=== PATIENT | male | born 1950 | race Caucasian/White ===

== ENCOUNTER 2022-07-08 08:12 | Day surgery (SDC) | payer OTHER, SELFPAY ==
[2022-07-08] VITALS (27 sets, daily range): BP systolic 90–167; BP diastolic 50–88; PULSE 48–93; RESP 12–20; TEMP 35.6–36.8; O2SAT 92–98; BMI 28.3
[2022-07-08] MEDS: OXYCODONE (CR) 10 MG TAB.ER.12H PO (08:32)
[2022-07-08] MEDS: ACETAMINOPHEN 500 MG TABLET 1000 MG PO ×3 (08:32→23:49)
[2022-07-08] MEDS: CELECOXIB 200 MG CAPSULE PO ×2 (08:32→20:50)
[2022-07-08] MEDS: LACTATED RINGERS 1000 ML 1,000 ML 100 ML IV ×2 (09:00→10:58)
[2022-07-08] MEDS: fentaNYL 100 MCG/2 ML inj IVP (09:45)
[2022-07-08] MEDS: MIDAZOLAM HCL 1 MG/ML inj IVP (09:46)
[2022-07-08] MEDS: TRANEXAMIC ACID 100 MG/ML INJ 1000 MG IV (10:10)
[2022-07-08] MEDS: CEFAZOLIN 2 GM in 0.9 % SODIUM CHLORIDE Mini-bag 100 ML IVPB ×3 (10:10→23:50)
--- NOTE | 2022-07-08 10:14 | CRLHL7_ITS ---
For Patients: As a result of the Cures Act, medical imaging exams and procedure reports are released immediately into your electronic medical record. You may view this report before your referring provider. If you have questions, please contact your health care provider. Indication: post op TKA Technique: Two views left knee Findings/Impression: Hardware from a left total knee arthroplasty is in satisfactory position. Bone alignment is normal. No sign of acute fracture. Postop changes are within normal limits. Dictated by Ruy Simpson MD @ 07/08/2022 2:01:54 PM (Electronically Signed)
--- NOTE | 2022-07-08 10:40 | P.NB_ITS ---
Nerve Block Nerve Block Date Seen: 07/08/22 Type of block requested by surgeon for post-operative analgesia: adductor canal Side: left Time out performed: Yes Verification of patient name: Yes Verification of date of : Yes Site marking: site marked Name of person performing procedure: Flakito Continuous monitoring Was continuous monitoring of O2 sat, B/P, monitoring specialist, recorded every 15 minutes?: Yes Procedure Checklist: sterile prep, needles and gloves Ultrasound guided. Images saved: Yes Medications given in 5ml increments after negative aspiration: Ropivicaine %: 0.5 mL: 20 Needle gauge: 20 Decadron (mg): 10 Precedex (mcg): 25 Patient tolerated procedure well: Yes Additional comments: Needle noted adjacent to nerve Block Charges Block Charge (with Pro Fee): Femoral Nerve Use of Ultrasound Machine for Block: Yes- US Guidance/pain block
--- NOTE | 2022-07-08 10:41 | W.PM.NB ---
Nerve Block Nerve Block Date Seen: 07/08/22 Type of block requested by surgeon for post-operative analgesia: geniculars Side: left Time out performed: Yes Verification of patient name: Yes Verification of date of : Yes Site marking: site marked Name of person performing procedure: Flakito Continuous monitoring Was continuous monitoring of O2 sat, B/P, media monitor, recorded every 15 minutes?: Yes Procedure Checklist: sterile prep, needles and gloves Medications given in 5ml increments after negative aspiration: Ropivicaine %: 0.5 mL: 9 Needle gauge: 25 Patient tolerated procedure well: Yes Block Charges Block Charge (with Pro Fee): Genicular Nerve Block Use of Ultrasound Machine for Block: No
--- NOTE | 2022-07-08 11:58 | P.ORPRC_ITS ---
Procedure Note Date of procedure: 07/08/22 Procedure: PREOPERATIVE DIAGNOSIS: 1. Left knee osteoarthritis, primary, severe POSTOPERATIVE DIAGNOSIS: 1. Left knee osteoarthritis, primary, severe PROCEDURE: 1. Left total knee arthroplasty SURGEON: Raimundo Moncada MD. [employer] INSPECTOR: Giorgio Jean Baptiste PA-C - Of note, a skilled accounts payable assistant was critical for this case to aid in patient positioning, tissue retraction, limb manipulation/positioning, and closure. ANESTHESIA: Spinal anesthetic EBL: 50ml IMPLANTS: DePuy J&J all cemented TKA - Attune PS femur size 7, size 5 tibia, 7 mm poly spacer, 38 mm patella TOURNIQUET: 90 min at 300 torr COMPLICATIONS: None evident INDICATIONS: The patient is a pleasant 72-year-old male who has experienced severe left knee pain and difficulty bearing weight. Workup included x-rays which revealed severe osteoarthrosis in the knee. Given the deformity, the dysfunction, and the pain, as well as the failure of nonoperative management, recommendation was made for surgery. FINDINGS: Moderate effusion upon entering the joint. Full-thickness chondral loss broadly for the medial compartment with erosion into the femur and tibia. Substantial chondromalacia other compartments as well. Posterior osteophytes were significant in size. Perimeter osteophytes also noted on the lateral and medial aspects. DESCRIPTION OF PROCEDURE: Following a thorough discussion of risks, benefits, and alternatives consent was obtained and the left knee was marked. The patient was brought to the operating room and placed supine on the operating table. Induction of anesthesia was undertaken. 2 g IV Ancef and 1 g tranexamic acid was administered within 1 hr of incision preoperatively. Proper time-out was performed identifying proper patient, site, procedure. The operative extremity was prepped and draped in the appropriate sterile fashion using ChloraPrep after the patient was positioned supine with all bony prominences well padded. A longitudinal, anterior, midline skin incision was made starting approximately 3cm proximal to the superior pole of the patella and advanced distal to the tibial tubercle. A median parapatellar arthrotomy was created. A medial subperiosteal sleeve was created with knife, miranda elevator and curved osteotome. The retropatellar fatpad was resected and the synovium in the suprapatellar pouch excised to visualize the anterior femoral cortex. Femoral preparation was performed via an intramedullary guide. Step drill allowed access into the femoral canal. The distal cutting guide was placed with 5? of valgus and 10 mm cut on the distal femur. Femur was sized using a anterior referencing guide in 3? of external rotation. This found have a best fit with the sizing noted above. The 4 in 1 cutting block was then placed, and the distal femur shaped accordingly. The box cut was then created and the trial implant inserted to confirm appropriate fit. We turned our attention to the proximal tibia. Extramedullary guide was utilized for cutting with the goal of being 90 degree cut from the mechanical axis of the tibia in the varus/valgus plane utilizing tibial crest as the primary alignment. Initially a 2 mm resection was performed from the medial tibial plateau. Ultimately, balancing was achieved in both flexion and extension in both varus and valgus. The knee was able to achieve full extension as well comfortably. The patella was initially measured and found have a thickness of 26 mm. It was resected back to approximately 16 mm. It was sized to be a best fit with as noted above. This was drilled, trial placed. All trials were placed and found to have an excellent stability and balance. At this stage, trial implants were removed, the knee was thoroughly irrigated with normal saline, and the cement was mixed. After irrigation, the knee was thoroughly dried, and cement placed, with the real tibial and femoral implants placed along with the patella. Trial poly spacer was placed and confirmed to have excellent range of motion and full extension, and the real poly spacer opened and inserted. All extra cement was removed, and a 3 min Betadine soak performed. Finally, a final irrigation round with normal saline was performed. Closure performed with 0 PDS and #0 Stratafix for the quad tendon/retinaculum. 2-0 Vicryl/Stratafix for the subcutaneous and 4-0 Monocryl for subcuticular closure. Dressings were applied and the patient was awoken from anesthesia after the tourniquet deflated and transferred the PACU in stable condition. A skilled accounts payable assistant was critical for this case to aid in patient positioning, tissue retraction, bone exposure, limb manipulation/positioning, patient safety, and closure. PLAN: 1. Weight bear as tolerated operative extremity. 2. 23 hr perioperative antibiotics. 3. Ice. 4. PT/OT consults for ambulation assistance/mobility education. 5. Social work consult for discharge planning. 6. DVT prophylaxis with at SCDs, Nimesh Hose, and aspirin twice daily gabriela Dailey-will communicate with hospitalist team regarding this.
--- NOTE | 2022-07-08 12:49 | W.ANESCHARGE ---
Anesthesia Charges Start Date/Time Anesthesia Start Date: 07/08/22 Anesthesia Start Time: 10:05 Stop Date/Time Anesthesia Stop Date: 07/08/22 Anesthesia Stop Time: 12:47 Summary Emergency: No Extremes of Age: Over 68-CPT 20425
--- NOTE | 2022-07-08 13:11 | W.ANESCHARGE ---
Anesthesia Charges Start Date/Time Anesthesia Start Date: 07/08/22 Anesthesia Start Time: 10:05 Stop Date/Time Anesthesia Stop Date: 07/08/22 Anesthesia Stop Time: 12:47 Summary Emergency: No Extremes of Age: Over 68-CPT 25324
[2022-07-08] MEDS: HYDROmorphone 0.5 mg/0.5 ml inj IVP (15:03)
[2022-07-08] MEDS: OXYCODONE 5 MG TABLET PO ×2 (15:55→19:34)
--- NOTE | 2022-07-08 18:24 | PC.NURSE ---
End of shift. pt has been pleasant. came back from surgery @ 1325. no pain. pain did increased and he got IV and po pain meds. pain is currently 1-11/22/ ice to the knee cryo cuff. dressing is C/D/I. he is eating and drinking. no void so far. he is a fall risk and alarms are on. IV is patent. IS to 1500. teds and plexi are on.
--- NOTE | 2022-07-08 18:48 | P.IMCN_ITS ---
Date of Consult Patient: Jesus Patient Consult date: 07/08/22 Requesting Physician: Orthopedics Primary Care Provider: Naresh Henry MD Consult Narrative Reason for consult: Narrative: HOSPITALIST CONSULT Hospital Day #1 Post Op Day #0 Date of procedure: 07/08/22 PROCEDURE: Left total knee arthroplasty SURGEON:? Raimundo Moncada MD. ANESTHESIA:? Spinal anesthetic EBL: ? 50ml COMPLICATIONS:? None evident The hospital medicine team was asked by Orthopedic surgery team to manage the patient's asthma, mitral valve heart disease, hypertension, GERD, type 2 diabetes I updated the [facility] histories and Medications and Allergies in the Expanse tabs REVIEW OF SYSTEMS: 12-point ROS completed with patient and negative unless otherwise stated in HPI or below. PHYSICAL EXAM: CODE STATUS: FULL CODE CONSTITUTIONAL: Conversive, good historian. A/O. Knows setting and context. VITAL SIGNS: see record. HEENT: Normocephalic, atraumatic. PERRL, EOMI, conjunctivae pink, no scleral icterus. Ears and nose externally normal. Pharynx normal. NECK: No JVD. No carotid bruit, no thyromegaly, no adenopathy. CHEST: Clear to auscultation bilaterally - no wheezes HEART: 3/6 soft holosystolic ejection murmur. No clicks. ABDOMEN: Flat, soft, nontender. Normal bowel sounds. EXTREMITIES: No edema. MUSCULOSKELETAL: Surgical dressing intact. Hematoma. Neurovascularly intact. NEURO: Cranial nerves intact. Normal affect. No gross deficits. Speech intelligible. SKIN: No rashes, petechiae, concerning changes PSYCHIATRIC: Euthymic. INVESTIGATIONS: EMR Reviewed DISPOSITION: MedSurg Recovery; Discharge tomorrow DVT: I see an aspirin allergy listed. I also see Xarelto on the discharge summary. Agree with this for DVT prophylaxis. GI: PO intake PFSH FORMERLY [facility], 1928–1983 Medical History (Updated 07/08/22 @ 19:30 by Ramila Kruger MD) Asthma Diabetes mellitus type 2, controlled GERD (gastroesophageal reflux disease) Glaucoma History of pneumothorax Hyperlipidemia Hypertension Mitral valve disease Surgical History (Updated 07/08/22 @ 19:31 by Ramila Kruger MD) History of chest tube placement History of eye surgery History of repair of right rotator cuff (03/28/10) History of total knee arthroplasty Hx of cataract extraction Family History Father Bone cancer Emphysema lung Sister Skin cancer Sepsis Paternal Grandfather Diabetes Brother Stroke Social History Smoking Status: Former smoker What tobacco products do you use: cigarettes Smoking quit date/years: >15 years ago Do you use any of these nicotine containing products: None Second hand tobacco smoke exposure: No How often do you have a drink containing alcohol: 4 or more times a week Alcohol type: beer How many standard drinks containing alcohol do you have on a typical day: 1 or 2 How often do you have six or more drinks on one occasion: Never AUDIT-C Alcohol total score: 4 Non-prescribed substance use: denies use Caffeine: Yes (coffee, 2-3 cups/day) service: Yes Meds Home Medications and Allergies Home Medications Medication Instructions Recorded Confirmed Type acetaminophen 650 mg 1,300 mg PO Q12H 06/04/22 07/08/22 History tablet,extended release (Tylenol Arthritis Pain) amlodipine 10 mg tablet 10 mg PO DAILY 06/04/22 07/08/22 History cetirizine 10 mg tablet 10 mg PO DAILY 06/04/22 07/08/22 History chlorthalidone 25 mg tablet 25 mg PO DAILY 06/04/22 07/08/22 History cholecalciferol (vitamin D3) 25 25 mcg PO BID 06/04/22 07/08/22 History mcg (1,000 unit) capsule (Vitamin D3) coenzyme Q10 100 mg capsule (Co 100 mg PO QDAY 06/04/22 07/08/22 History Q-10) empagliflozin 25 mg tablet 12.5 mg PO QAM 06/04/22 07/08/22 History glucosamine HCl 500 mg tablet 1,000 mg PO BID 06/04/22 07/08/22 History latanoprostene bunod 0.024 % eye 1 drp ophthalmic (eye) HS 06/04/22 07/08/22 History drops lisinopril 40 mg tablet 40 mg PO DAILY 06/04/22 07/08/22 History multivitamin 1 tab PO DAILY 06/04/22 07/08/22 History albuterol sulfate 90 mcg/actuation 2 inh inhalation Q4H PRN 07/08/22 07/08/22 History aerosol inhaler (Ventolin HFA) brimonidine 0.15 % eye drops 1 drp ophthalmic (eye) BID 07/08/22 07/08/22 History cellulose 80 % oral powder 2 g PO DAILY 07/08/22 07/08/22 History (Unifiber) dorzolamide 22.3 mg-timolol 6.8 1 drp ophthalmic (eye-right) BID 07/08/22 07/08/22 History mg/mL eye drops fluticasone 100 mcg-salmeterol 50 1 inh inhalation BID 07/08/22 07/08/22 History mcg/dose blistr powdr for inhalation (Advair Diskus) niacin 500 mg tablet 500 mg PO DAILY 07/08/22 07/08/22 History omega 7-rkh-wsu-fish oil 1,000 mg 1 cap PO DAILY 07/08/22 07/08/22 History (120 mg-180 mg) capsule (Fish Oil) pravastatin 20 mg tablet 10 mg PO HS 07/08/22 07/08/22 History Allergies Allergy/AdvReac Type Severity Reaction Status Date / Time ezetimibe [From Zetia] Allergy Mild Verified 07/08/22 10:05 gemfibrozil Allergy Mild Verified 07/08/22 10:05 rosuvastatin [From Crestor] Allergy Mild Fatigued Verified 07/08/22 10:05 aspirin AdvReac Mild Verified 07/08/22 10:05 metformin AdvReac Severe Gastrointestinal Uncoded 07/08/22 10:05 Upset Exam Const: Vital Signs, click to edit/add: Vital Signs - 24 hr 07/08/22 09:13 07/08/22 09:45 07/08/22 09:50 Temperature 98.2 F Pulse Rate 80 70 Pulse Rate [Right Radial] Respiratory Rate 16 16 12 Blood Pressure 138/88 141/82 H 158/75 H Blood Pressure [Ri ght Arm] Pulse Oximetry 98 98 98 Oxygen Delivery Me thod Room Air Room Air Nasal Cannula Oxygen Flow Rate 2 07/08/22 09:55 07/08/22 12:45 07/08/22 12:50 Temperature 97 F L Pulse Rate 70 58 L 58 L Pulse Rate [Right Radial] Respiratory Rate 12 20 20 Blood Pressure 91/58 L 90/51 L 93/55 L Blood Pressure [Ri ght Arm] Pulse Oximetry 95 97 97 Oxygen Delivery Me thod Nasal Cannula Non Rebreather Mas k Non Rebreather Mas k Oxygen Flow Rate 2 5 3 07/08/22 12:55 07/08/22 13:00 07/08/22 13:05 Temperature Pulse Rate 59 L 59 L 55 L Pulse Rate [Right Radial] Respiratory Rate 16 16 16 Blood Pressure 94/57 L 98/53 L 98/56 L Blood Pressure [Ri ght Arm] Pulse Oximetry 97 93 93 Oxygen Delivery Me thod Non Rebreather Mas k Non Rebreather Mas k Non Rebreather Mas k Oxygen Flow Rate 3 0 0 07/08/22 13:10 07/08/22 13:15 07/08/22 14:17 Temperature 97.2 F L Pulse Rate 59 L 55 L Pulse Rate [Right Radial] 60 Respiratory Rate 16 16 16 Blood Pressure 100/55 L 106/57 L Blood Pressure [Ri ght Arm] 117/58 L Pulse Oximetry 92 93 93 Oxygen Delivery Me thod Non Rebreather Mas k Non Rebreather Mas k Room Air Oxygen Flow Rate 0 0 0 07/08/22 13:25 07/08/22 13:30 07/08/22 13:45 Temperature 96.1 F L Pulse Rate Pulse Rate [Right Radial] 55 L 52 L 48 L Respiratory Rate 16 16 18 Blood Pressure Blood Pressure [Ri ght Arm] 103/58 L 107/57 L 105/50 L Pulse Oximetry 93 92 93 Oxygen Delivery Me thod Room Air Room Air Room Air Oxygen Flow Rate 0 0 07/08/22 14:03 07/08/22 13:25 07/08/22 14:30 Temperature 96.1 F L Pulse Rate 55 L Pulse Rate [Right Radial] 58 L 53 L Respiratory Rate 16 16 16 Blood Pressure Blood Pressure [Ri ght Arm] 107/60 103/58 L 122/88 Pulse Oximetry 94 93 Oxygen Delivery Me thod Room Air Room Air Room Air Oxygen Flow Rate 0 0 0 07/08/22 14:46 07/08/22 15:05 07/08/22 16:14 Temperature 96.9 F L Pulse Rate Pulse Rate [Right Radial] 60 62 Respiratory Rate 18 18 18 Blood Pressure Blood Pressure [Ri ght Arm] 127/77 141/69 H Pulse Oximetry 94 95 Oxygen Delivery Me thod Room Air Room Air Oxygen Flow Rate 0 0 07/08/22 16:00 07/08/22 17:00 07/08/22 18:02 Temperature 97.1 F L Pulse Rate Pulse Rate [Right Radial] 70 76 84 Respiratory Rate 18 18 18 Blood Pressure Blood Pressure [Ri ght Arm] 150/74 H 157/84 H 167/84 H Pulse Oximetry 93 94 97 Oxygen Delivery Me thod Room Air Room Air Room Air Oxygen Flow Rate 0 0 Assessment and Plan Assessment and plan (1) History of total knee arthroplasty: Problem comment: Left knee, June 2022 No obvious perioperative complications. I will make his home regimen for his asthma available. We will watch his blood pressure and add back antihypertensive therapy as needed. We will follow bedside glucose and monitor and treat as needed. I see an aspirin allergy and agree with Asim at discharge. For DVT prophylaxis. Status: Acute (2) Asthma: Problem comment: Advair and Zyrtec scheduled. P.r.n. albuterol Status: Acute (3) Diabetes mellitus type 2, controlled: Problem comment: Monotherapy with Jardiance. Will hold and monitor bedside glucose monitoring. He can resume once he is home. Status: Acute (4) Hypertension: Problem comment: Triple med therapy: Amlodipine, chlorthalidone, lisinopril Mildly hypertensive tonight postoperatively. I will give him his dose of lisinopril, I will continue to hold the amlodipine and chlorthalidone but he can continue all 3 of these once he is discharged. Status: Acute (5) Mitral valve disease: Problem comment: 3/6 soft ejection murmur. Noted. Status: Acute (6) GERD (gastroesophageal reflux disease): Problem comment: Scheduled Zantac Status: Acute (7) Glaucoma: Problem comment: Continue home regimen Status: Acute
[2022-07-08] MEDS: LACTATED RINGERS 1000 ML 1,000 ML 75 ML IV (19:33)
[2022-07-08] MEDS: lisinopriL 20 MG TABLET 40 MG PO (19:34)
[2022-07-08] MEDS: PRAVASTATIN SODIUM 20 MG TABLET 10 MG PO (20:50)
[2022-07-08] MEDS: SENNOSIDES 1 TAB TABLET 2 TAB PO (20:50)
[2022-07-08] MEDS: DORZOLAMIDE/TIMOLOL 2-0.5% OPHTH 1 DROP EYE-RIGHT (20:54)
[2022-07-09] MEDS: MAG HYDROX/ALUMINUM HYD/SIMETH 30 ML ORAL.SUSP PO ×2 (01:53→07:45)
[2022-07-09 02:42] VITALS: BP 118/59; PULSE 78; RESP 16; TEMP 36.6; O2SAT 95
--- NOTE | 2022-07-09 04:31 | PC.NURSE ---
Pt rested well this night. Pain controlled. Steady on feet with walker. Adequately voiding. Afebrile. Wound CDI. SCDs removed @ 0430, pt claiming they were bothering the heels of his feet.
[2022-07-09 05:47] VITALS: TEMP 36.6
[2022-07-09] MEDS: ACETAMINOPHEN 500 MG TABLET 1000 MG PO (05:47)
[2022-07-09] MEDS: OXYCODONE 5 MG TABLET PO ×2 (05:48→08:31)
[2022-07-09] MEDS: ONDANSETRON 2 MG/ML inj 4 MG IVP (05:54)
[2022-07-09 07:26] LABS: Basophils Percent Auto 0.1 % (0.0-3.0); Hematocrit 37.6 % (37.0-53.0); Hemoglobin* 12.7 gm/dL (13.5-17.5); Immature Granulocytes Abs Auto 0.02 K/uL (0.00-0.30); Lymphocytes Percent Auto 5.2 % (20-44); Mean Corpuscular HGB Conc 34 gm/dL (32-36); Mean Corpuscular Hemoglobin 32 pg (26-34); Mean Corpuscular Volume 94 fL (80-100); Monocytes Percent Auto 5.4 % (0.0-11.0); Neutrophils Percent Auto 89.2 % (42.0-72.0); Platelet Count* 206 K/uL (140-440); RDW Coefficient of Variation % 12.3 % (11.5-15.5); Red Blood Count 4.02 m/uL (4.30-5.90); White Blood Count* 13.83 K/uL (4.50-11.00)
[2022-07-09 07:30] VITALS: BP 100/52; PULSE 87; RESP 18; TEMP 36.2; O2SAT 93
[2022-07-09 07:31] LABS: Slide Review Reflex No
[2022-07-09 08:01] LABS: Potassium* 3.8 mmol/L (3.6-5.1); Sodium* 132 mmol/L (135-149)
[2022-07-09 08:04] LABS: Creatinine* 0.9 mg/dL (0.5-1.5); Est. Creatinine Clearance* 58.48; Estimated Glomerular Filt Rate 90 ml/min
[2022-07-09 08:05] LABS: Blood Urea Nitrogen* 23 mg/dL (7-30)
[2022-07-09] MEDS: SENNOSIDES 1 TAB TABLET 2 TAB PO (08:30)
[2022-07-09] MEDS: CEFAZOLIN 2 GM in 0.9 % SODIUM CHLORIDE Mini-bag 100 ML IVPB (08:30)
[2022-07-09] MEDS: lisinopriL 20 MG TABLET 40 MG PO (08:31)
[2022-07-09] MEDS: CETIRIZINE HCL 10 MG TABLET PO (08:31)
[2022-07-09] MEDS: RIVAROXABAN 10 MG TABLET PO (08:31)
[2022-07-09] MEDS: CELECOXIB 200 MG CAPSULE PO (08:31)
[2022-07-09] MEDS: DORZOLAMIDE/TIMOLOL 2-0.5% OPHTH 1 DROP EYE-RIGHT (08:32)
[2022-07-09] MEDS: FAMOTIDINE 20 MG TABLET PO (08:32)
[2022-07-09 09:34] VITALS: PULSE 87; RESP 18
--- NOTE | 2022-07-09 11:49 | PC.NURSE ---
CALLED PATIENT AND TO MAIL TECHNICIAN NEW PRESCRIPTIONS
--- NOTE | 2022-07-09 12:01 | P.ORPN_ITS ---
Subjective Subjective Date Seen: 07/09/22 Principal diagnosis: Status postop day 1 left total knee arthroplasty Interval history: Patient reports doing well. No acute events over night. Last night, had a brief period of lightheadedness when ambulating in the ruano with nurse without loss of consciousness. This has not happened since. Pain managed with scheduled /PRN medications and ice. DVT prophylaxis Xarelto, bilateral knee high Nimesh stockings, and SCDs. Denies fevers, chills, aches, N/V, CP, SOB/BARFIELD, tachycardia, or lightheadedness. Ortho Exam Narrative Exam Narrative: -Patient appears comfortable in chair eating breakfast; no apparent acute distress -Alert and oriented times 3 -Operative knee mildly swollen; soft tissues supple; no ecchymosis; no erythematous streaking Warmth appropriate -Surgical dressing clean, dry, intact; no drainage -Bilateral calfs soft; no significant swelling, edema, tenderness, erythema, discoloration, warmth, or palpable cords -2+ DP/PT pulses, intact dermatomes and myotomes distally (5/5 strength) Const Vital Signs, click to edit/add: Vital Signs - 24 hr 07/08/22 12:45 07/08/22 12:50 07/08/22 12:55 Temperature 97 F L Pulse Rate 58 L 58 L 59 L Pulse Rate [Right Radial] Respiratory Rate 20 20 16 Blood Pressure 90/51 L 93/55 L 94/57 L Blood Pressure [Right Arm] Pulse Oximetry 97 97 97 Oxygen Delivery Method Non Rebreather Mask Non Rebreather Mask Non Rebreather Mask Oxygen Flow Rate 5 3 3 07/08/22 13:00 07/08/22 13:05 07/08/22 13:10 Temperature Pulse Rate 59 L 55 L 59 L Pulse Rate [Right Radial] Respiratory Rate 16 16 16 Blood Pressure 98/53 L 98/56 L 100/55 L Blood Pressure [Right Arm] Pulse Oximetry 93 93 92 Oxygen Delivery Method Non Rebreather Mask Non Rebreather Mask Non Rebreather Mask Oxygen Flow Rate 0 0 0 07/08/22 13:15 07/08/22 14:17 07/08/22 13:25 Temperature 97.2 F L 96.1 F L Pulse Rate 55 L Pulse Rate [Right Radial] 60 55 L Respiratory Rate 16 16 16 Blood Pressure 106/57 L Blood Pressure [Right Arm] 117/58 L 103/58 L Pulse Oximetry 93 93 93 Oxygen Delivery Method Non Rebreather Mask Room Air Room Air Oxygen Flow Rate 0 0 07/08/22 13:30 07/08/22 13:45 07/08/22 14:03 Temperature Pulse Rate Pulse Rate [Right Radial] 52 L 48 L 58 L Respiratory Rate 16 18 16 Blood Pressure Blood Pressure [Right Arm] 107/57 L 105/50 L 107/60 Pulse Oximetry 92 93 94 Oxygen Delivery Method Room Air Room Air Room Air Oxygen Flow Rate 0 0 0 07/08/22 13:25 07/08/22 14:30 07/08/22 14:46 Temperature 96.1 F L Pulse Rate 55 L Pulse Rate [Right Radial] 53 L 60 Respiratory Rate 16 16 18 Blood Pressure Blood Pressure [Right Arm] 103/58 L 122/88 127/77 Pulse Oximetry 93 94 Oxygen Delivery Method Room Air Room Air Room Air Oxygen Flow Rate 0 0 0 07/08/22 15:05 07/08/22 16:14 07/08/22 16:00 Temperature 96.9 F L 97.1 F L Pulse Rate Pulse Rate [Right Radial] 62 70 Respiratory Rate 18 18 18 Blood Pressure Blood Pressure [Right Arm] 141/69 H 150/74 H Pulse Oximetry 95 93 Oxygen Delivery Method Room Air Room Air Oxygen Flow Rate 0 0 07/08/22 17:00 07/08/22 18:02 07/08/22 19:38 Temperature 98.1 F Pulse Rate Pulse Rate [Right Radial] 76 84 93 Respiratory Rate 18 18 16 Blood Pressure Blood Pressure [Right Arm] 157/84 H 167/84 H 152/75 H Pulse Oximetry 94 97 96 Oxygen Delivery Method Room Air Room Air Room Air Oxygen Flow Rate 0 07/08/22 22:22 07/08/22 22:24 07/08/22 23:49 Temperature 97.7 F 97.7 F Pulse Rate Pulse Rate [Right Radial] 82 82 Respiratory Rate 16 16 Blood Pressure Blood Pressure [Right Arm] 110/68 Pulse Oximetry 95 Oxygen Delivery Method Room Air Oxygen Flow Rate 07/09/22 02:42 07/09/22 05:47 07/09/22 09:34 Temperature 98 F 98 F Pulse Rate Pulse Rate [Right Radial] 78 87 Respiratory Rate 16 18 Blood Pressure Blood Pressure [Right Arm] 118/59 L Pulse Oximetry 95 Oxygen Delivery Method Room Air Oxygen Flow Rate 0 07/09/22 07:30 Temperature 97.2 F L Pulse Rate Pulse Rate [Right Radial] 87 Respiratory Rate 18 Blood Pressure Blood Pressure [Right Arm] 100/52 L Pulse Oximetry 93 Oxygen Delivery Method Room Air Oxygen Flow Rate 0 Assessment and Plan Assessment and plan (1) History of total knee arthroplasty: Problem details: Postop day 1 left total knee arthroplasty Status: Acute (2) Asthma: Problem details: Advair and Zyrtec scheduled. P.r.n. albuterol Status: Acute (3) Diabetes mellitus type 2, controlled: Problem details: Monotherapy with Jardiance. Will hold and monitor bedside glucose monitoring. He can resume once he is home. Status: Acute (4) Hypertension: Problem details: Triple med therapy: Amlodipine, chlorthalidone, lisinopril Mildly hypertensive tonight postoperatively. I will give him his dose of lisinopril, I will continue to hold the amlodipine and chlorthalidone but he can continue all 3 of these once he is discharged. Status: Acute (5) Mitral valve disease: Problem details: 12/16 soft ejection murmur. Noted. Status: Acute (6) GERD (gastroesophageal reflux disease): Problem details: Scheduled Zantac Status: Acute (7) Glaucoma: Problem details: Continue home regimen Status: Acute Plan - Complete 23 hour perioperative antibiotics. - PT/OT consult for education and assistance. - Social work consult for discharge planning - Prescribed analgesics as needed - DVT prophylaxis: Patient has a history of spontaneous DVT approximately 3 yea rs ago. Was treated appropriately. Will place patient on 2 weeks of Xarelto, followed by 2 weeks of aspirin b.i.d. When discussing his allergy to aspirin, patient does not recall any allergy to aspirin, in fact has taken 81 mg aspirin b.i.d. in the past without issue. He will also wear bilateral knee high Nimesh Hose stockings and SCDs - Anticipation is for discharge to home with family 07/09/2022 if the patient remains medically stable, pain is controlled, and they are safe with mobilization.
--- NOTE | 2022-07-09 12:08 | P.DS_ITS ---
DS: Providers Provider Date Seen: 07/09/22 Date of admission: med/surg recovery 07/08/22 Primary care physician: Naresh Henry MD Consults: 07/08/22 13:28 Consult to Occupational Therapy [CONS] Routine Comment: Reason(s) for OT Consult:: ADLs Prior to Discharge Any Restrictions?:: See Comment Comment: See nursing activity order for any restrictions. Consult to Physical Therapy [CONS] Routine Comment: Ambulate in the ruano today. Reason(s) for PT Consult:: TKA TX Protocol POD#0 Any Restrictions?:: See Comment Comment: See nursing activity order for any restrictions. Consult to Physician [CONS] Routine Comment: Consulting Provider: Hospitalists Has provider been notified: No Consult to [facility] [CONS] Routine Comment: Reason for Consult:: Discharge Planning Needs Attending Physician on discharge: Raimundo Moncada MD Date of Discharge: 07/09/22 DS: Diagnosis Discharge Diagnosis (1) History of total knee arthroplasty: Status: Acute Problem details: Postop day 1 left total knee arthroplasty DS: Summary Hospital Course Hospital Course: The patient has a history of left knee osteoarthritis, primary, severe. After appropriate preoperative evaluation, the patient underwent left total knee arthroplasty. Postoperatively given anticoagulation for deep vein thrombosis prophylaxis. Due to history of spontaneous DVT 3 years ago, patient will be on 2 weeks of 10 mg once daily Xarelto, followed by 2 weeks of 81 mg aspirin by mouth twice daily. They progressed to PT/OT and were felt ready and prepared for discharged to home with appropriate pain medication and anticoagulation medications. Status at Discharge Functional status at discharge: uses cane/walker Overall status at discharge: patient is progressing back to baseline Time Spent with Patient Time attestation: Total time spent providing and/or coordinating discharge services: Time spent: Less than 30 minutes Exam Const: Vital Signs, click to edit/add: Vital Signs - 24 hr 07/08/22 12:45 07/08/22 12:50 07/08/22 12:55 Temperature 97 F L Pulse Rate 58 L 58 L 59 L Pulse Rate [Right Radial] Respiratory Rate 20 20 16 Blood Pressure 90/51 L 93/55 L 94/57 L Blood Pressure [Ri ght Arm] Pulse Oximetry 97 97 97 Oxygen Delivery Me thod Non Rebreather Mas k Non Rebreather Mas k Non Rebreather Mas k Oxygen Flow Rate 5 3 3 07/08/22 13:00 07/08/22 13:05 07/08/22 13:10 Temperature Pulse Rate 59 L 55 L 59 L Pulse Rate [Right Radial] Respiratory Rate 16 16 16 Blood Pressure 98/53 L 98/56 L 100/55 L Blood Pressure [Ri ght Arm] Pulse Oximetry 93 93 92 Oxygen Delivery Me thod Non Rebreather Mas k Non Rebreather Mas k Non Rebreather Mas k Oxygen Flow Rate 0 0 0 07/08/22 13:15 07/08/22 14:17 07/08/22 13:25 Temperature 97.2 F L 96.1 F L Pulse Rate 55 L Pulse Rate [Right Radial] 60 55 L Respiratory Rate 16 16 16 Blood Pressure 106/57 L Blood Pressure [Ri ght Arm] 117/58 L 103/58 L Pulse Oximetry 93 93 93 Oxygen Delivery Me thod Non Rebreather Mas k Room Air Room Air Oxygen Flow Rate 0 0 07/08/22 13:30 07/08/22 13:45 07/08/22 14:03 Temperature Pulse Rate Pulse Rate [Right Radial] 52 L 48 L 58 L Respiratory Rate 16 18 16 Blood Pressure Blood Pressure [Ri ght Arm] 107/57 L 105/50 L 107/60 Pulse Oximetry 92 93 94 Oxygen Delivery Me thod Room Air Room Air Room Air Oxygen Flow Rate 0 0 0 07/08/22 13:25 07/08/22 14:30 07/08/22 14:46 Temperature 96.1 F L Pulse Rate 55 L Pulse Rate [Right Radial] 53 L 60 Respiratory Rate 16 16 18 Blood Pressure Blood Pressure [Ri ght Arm] 103/58 L 122/88 127/77 Pulse Oximetry 93 94 Oxygen Delivery Me thod Room Air Room Air Room Air Oxygen Flow Rate 0 0 0 07/08/22 15:05 07/08/22 16:14 07/08/22 16:00 Temperature 96.9 F L 97.1 F L Pulse Rate Pulse Rate [Right Radial] 62 70 Respiratory Rate 18 18 18 Blood Pressure Blood Pressure [Ri ght Arm] 141/69 H 150/74 H Pulse Oximetry 95 93 Oxygen Delivery Me thod Room Air Room Air Oxygen Flow Rate 0 0 07/08/22 17:00 07/08/22 18:02 07/08/22 19:38 Temperature 98.1 F Pulse Rate Pulse Rate [Right Radial] 76 84 93 Respiratory Rate 18 18 16 Blood Pressure Blood Pressure [Ri ght Arm] 157/84 H 167/84 H 152/75 H Pulse Oximetry 94 97 96 Oxygen Delivery Me thod Room Air Room Air Room Air Oxygen Flow Rate 0 07/08/22 22:22 07/08/22 22:24 07/08/22 23:49 Temperature 97.7 F 97.7 F Pulse Rate Pulse Rate [Right Radial] 82 82 Respiratory Rate 16 16 Blood Pressure Blood Pressure [Ri ght Arm] 110/68 Pulse Oximetry 95 Oxygen Delivery Me thod Room Air Oxygen Flow Rate 07/09/22 02:42 07/09/22 05:47 07/09/22 09:34 Temperature 98 F 98 F Pulse Rate Pulse Rate [Right Radial] 78 87 Respiratory Rate 16 18 Blood Pressure Blood Pressure [Ri ght Arm] 118/59 L Pulse Oximetry 95 Oxygen Delivery Me thod Room Air Oxygen Flow Rate 0 07/09/22 07:30 Temperature 97.2 F L Pulse Rate Pulse Rate [Right Radial] 87 Respiratory Rate 18 Blood Pressure Blood Pressure [Ri ght Arm] 100/52 L Pulse Oximetry 93 Oxygen Delivery Me thod Room Air Oxygen Flow Rate 0 DS: Data Data Completed and Pending Labs on day of discharge: Labs from last 24 hours 07/09/22 07/09/22 07:06 07:06 WBC 13.83 H RBC 4.02 L Hgb 12.7 L Hct 37.6 MCV 94 MCH 32 MCHC 34 RDW Coeff of Pat 12.3 Plt Count 206 Neut % (Auto) 89.2 H Lymph % (Auto) 5.2 L Mitchell % (Auto) 5.4 Eos % (Auto) 0.0 Baso % (Auto) 0.1 Neut # (Auto) 12.30 H Lymph # (Auto) 0.70 L Mitchell # (Auto) 0.70 Eos # (Auto) 0.00 Baso # (Auto) 0.00 Abs Immat Gran (auto) 0.02 Sodium 132 L Potassium 3.8 BUN 23 Creatinine 0.9 Estimated Creat Clear 58.48 Estimated GFR 90 Discharge Plan Discharge Disposition: Home, Self-Care Discharging Surgeon: Raimundo Moncada Follow-Up Appointment: 1 week PO with KIRILL Prescriptions: New sennosides-docusate sodium [Senna-S] 8.6-50 mg tablet 1 - 4 tab-cap PO BID PRN (Reason: constipation) Qty: 60 0RF Rx Instructions: Hold medication if experiencing loose stools. celecoxib 100 mg capsule 100 mg PO BID Qty: 60 0RF oxycodone 5 mg tablet 2.5 - 5 mg PO Q4-6H MDD 6 PRN (Reason: pain) Qty: 42 0RF Rx Instructions: Take as needed for postop pain: 2.5mg mild pain, 5mg moderate-severe pain; wean as tolerated. aspirin 81 mg tablet,delayed release (DR/EC) 81 mg PO BID Qty: 28 0RF Rx Instructions: Medication to help prevent blood clots postoperatively; take TWICE daily once completed xarelto regimen. rivaroxaban 10 mg tablet 10 mg PO DAILY Qty: 14 0RF Rx Instructions: Medication for deep vein clot prevention post surgery. Complete this medication before starting Aspirin. Continued chlorthalidone 25 mg tablet 25 mg PO DAILY lisinopril 40 mg tablet 40 mg PO DAILY amlodipine 10 mg tablet 10 mg PO DAILY cetirizine 10 mg tablet 10 mg PO DAILY empagliflozin 25 mg tablet 12.5 mg PO QAM multivitamin Tablet 1 tab PO DAILY cholecalciferol (vitamin D3) [Vitamin D3] 25 mcg (1,000 unit) capsule 25 mcg PO BID coenzyme Q10 [Co Q-10] 100 mg capsule 100 mg PO QDAY glucosamine HCl 500 mg tablet 1,000 mg PO BID Rx Instructions: administer with meals latanoprostene bunod 0.024 % drops 1 drp ophthalmic (eye) HS acetaminophen [Tylenol Arthritis Pain] 650 mg tablet extended release 1,300 mg PO Q12H niacin 500 mg tablet 500 mg PO DAILY albuterol sulfate [Ventolin HFA] 90 mcg/actuation HFA aerosol inhaler 2 inh inhalation Q4H PRN brimonidine 0.15 % drops 1 drp ophthalmic (eye) BID dorzolamide-timolol 22.3-6.8 mg/mL drops 1 drp ophthalmic (eye-right) BID Unifiber 80 % powder 2 g PO DAILY Rx Instructions: mix into any appropriate beverage or soft food omega 9-iml-sol-fish oil [Fish Oil] 1,000 mg (120 mg-180 mg) capsule 1 cap PO DAILY fluticasone propion-salmeterol [Advair Diskus] 100-50 mcg/dose blister with device 1 inh inhalation BID pravastatin 20 mg tablet 10 mg PO HS Activity Level: Activity as Tolerated, Weight Bearing as Tolerated, Use Cane and Use Walker Patient Instructions: Oxycodone, Rapid Release (By mouth), Celecoxib (By mouth), Senna (By mouth), Surgical Site Infections (DC), Knee Replacement (DC) Additional Instructions: Wound: ?Do not remove original dressing; we will remove this at first postop visit in 1 week. Only remove dressing if integrity is in question. ?No immersing wound in water; showering okay; light scrub with your hand and body soap, rinse, dab dry ?Sutures are under the skin, will dissolve; allow surgical glue to come off naturally; do not scrub the wound or apply ointments/lotions ?Call our office with any redness that streaks, excessive drainage from the wound, or wound gapping. Ice/Elevate: ?Ice as needed for swelling and discomfort (cryocuff or ice pack); elevate frequently above the heart VANESSA socks: ?Wear for 1 month, remove for 1 hour 3 times per day ?These are frustrating to take on/off, but are important for blood clot prevention for 1 month after surgery Blood Clot Prevention (DVT): ?Medication: 81 mg aspirin by mouth twice daily (1 month) Driving: ?Do not drive while taking narcotic pain medication ?Anticipate 4-6 weeks no driving if operative leg is driving leg Dental: ?No elective dental work for 6 months post-op. If there is an urgent/emergent dental need, contact our office for an antibiotic prescription. Smoking/Alcohol: ?Do not smoke; do no drink alcohol especially when taking postoperative oral narcotic medication Seek Care from you Primary Care Provider if you experience the following issues in the postoperative phase and beyond: ?Bacterial infections such as: pneumonia, bacterial skin infection (cellulitis), UTI, high fever, chills unrelated to the operative body part - call your primary care physician urgently for treatment in hopes to protect your health and the m etal implant. Referrals: ?PT, OT per patient preference - evaluate treat total knee arthroplasty protocol (gait training, ROM, ADLs) Follow up: ?Ortho surgeon follow-up in 6 weeks; repeat radiographs three views operative knee ?PA-C visit in 1 week *If there are any acute concerns regarding your surgery, please call our orthopedic clinic ([phone]) Forms: Work/Release Restrictions Follow-up: Naresh Henry MD [Primary Care Provider] - Giorgio Jean Baptiste PA-C [Physician Supervisor [employer]] - 07/18/22 8:30 am Discharge Orders: Discharge Order (Routine); Ordered 07/09/22 Ordered By: Giorgio Jean Baptiste
--- NOTE | 2022-07-09 12:29 | PC.NURSE ---
Discharge ? pt is very pleasant.? knee pain 0-5/10 he is getting po pain meds. ? ice to the knee cryo cuff. ? dressing is C/D/I.? he is eating and drinking and voiding. ? IV was SL and it was d/c intact/ he is a fall risk and alarms are on.? IS to 1500.? teds and plexi are on.? went over discharge packet with pt and . went over medications, appointments, instructions and education. pt went over and signed personal belonging list. all belongings and paperwork sent with pt. pt got a w/c ride to his car and was helped in to his car.
--- NOTE | 2022-07-09 15:35 | P.DS_ITS ---
DS: Providers Provider Time Seen by Provider: 08:00 Date Seen: 07/09/22 Date of admission: 07/08/2022 Primary care physician: Naresh Henry MD Admitting Clinician: Raimundo Moncada MD Consults: 07/08/22 13:28 Consult to Occupational Therapy [CONS] Routine Comment: Reason(s) for OT Consult:: ADLs Prior to Discharge Any Restrictions?:: See Comment Comment: See nursing activity order for any restrictions. Consult to Physical Therapy [CONS] Routine Comment: Ambulate in the rauno today. Reason(s) for PT Consult:: TKA TX Protocol POD#0 Any Restrictions?:: See Comment Comment: See nursing activity order for any restrictions. Consult to Physician [CONS] Routine Comment: Consulting Provider: Hospitalists Has provider been notified: No Consult to Supervisor Telephone Answering Service [CONS] Routine Comment: Reason for Consult:: Discharge Planning Needs Attending Physician on discharge: Raimundo Moncada MD Date of Discharge: 07/09/22 DS: Diagnosis Discharge Diagnosis (1) Osteoarthritis of knees, bilateral: Status: Acute Problem details: Status post left total knee arthroplasty June of 2022 (2) Hypertension: Status: Acute Problem details: Triple med therapy: Amlodipine, chlorthalidone, lisinopril Mildly hypertensive tonight postoperatively. I will give him his dose of lisinopril, I will continue to hold the amlodipine and chlorthalidone but he can continue all 3 of these once he is discharged. (3) Asthma: Status: Acute Problem details: Advair and Zyrtec scheduled. P.r.n. albuterol (4) Mitral valve disease: Status: Acute Problem details: 3/6 soft ejection murmur. Noted. (5) Diabetes mellitus type 2, controlled: Status: Acute Problem details: Monotherapy with Jardiance. Will hold and monitor bedside glucose monitoring. He can resume once he is home. (6) Glaucoma: Status: Acute Problem details: Continue home regimen (7) GERD (gastroesophageal reflux disease): Status: Acute Problem details: Scheduled Zantac (8) Hyperlipidemia: Status: Acute Problem details: Statin therapy DS: Summary Hospital Course Hospital Course: The patient has a history of left knee osteoarthritis, primary, severe. After appropriate preoperative evaluation, the patient underwent left total knee arthroplasty. Postoperatively given anticoagulation for deep vein thrombosis prophylaxis. Due to history of spontaneous DVT 3 years ago, patient will be on 2 weeks of 10 mg once daily Xarelto, followed by 2 weeks of 81 mg aspirin by mouth twice daily. They progressed to PT/OT and were felt ready and prepared for discharged to home with appropriate pain medication and anticoagulation medications. Status at Discharge Functional status at discharge: uses cane/walker Overall status at discharge: patient is progressing back to baseline Time Spent with Patient Time attestation: Total time spent providing and/or coordinating discharge services: Time spent: Less than 30 minutes Exam Narrative: Exam Narrative: CONSTITUTIONAL: Conversive, good historian. A/O. Knows setting and context. VITAL SIGNS: see record.? HEENT: Normocephalic, atraumatic. PERRL, EOMI, conjunctivae pink, no scleral icterus. Ears and nose externally normal. Pharynx normal. NECK: No JVD. No carotid bruit, no thyromegaly, no adenopathy. CHEST:? Clear to auscultation bilaterally - no wheezes HEART:? 3/6 soft holosystolic ejection murmur.? No clicks. ABDOMEN: Flat, soft, nontender. Normal bowel sounds. EXTREMITIES:? No edema. MUSCULOSKELETAL:? Surgical dressing intact.? Hematoma.? Neurovascularly intact. NEURO: Cranial nerves intact.? Normal affect. No gross deficits. Speech intelligible. SKIN:? No rashes, petechiae, concerning changes PSYCHIATRIC: Euthymic. Const: Vital Signs, click to edit/add: Vital Signs - 24 hr 07/08/22 16:14 07/08/22 16:00 07/08/22 17:00 Temperature 97.1 F L Pulse Rate [Right Radial] 70 76 Respiratory Rate 18 18 18 Blood Pressure [Ri ght Arm] 150/74 H 157/84 H Pulse Oximetry 93 94 Oxygen Delivery Me thod Room Air Room Air Oxygen Flow Rate 0 07/08/22 18:02 07/08/22 19:38 07/08/22 22:22 Temperature 98.1 F 97.7 F Pulse Rate [Right Radial] 84 93 82 Respiratory Rate 18 16 16 Blood Pressure [Ri ght Arm] 167/84 H 152/75 H 110/68 Pulse Oximetry 97 96 95 Oxygen Delivery Me thod Room Air Room Air Room Air Oxygen Flow Rate 0 07/08/22 22:24 07/08/22 23:49 07/09/22 02:42 Temperature 97.7 F 98 F Pulse Rate [Right Radial] 82 78 Respiratory Rate 16 16 Blood Pressure [Ri ght Arm] 118/59 L Pulse Oximetry 95 Oxygen Delivery Me thod Room Air Oxygen Flow Rate 0 07/09/22 05:47 07/09/22 09:34 07/09/22 07:30 Temperature 98 F 97.2 F L Pulse Rate [Right Radial] 87 87 Respiratory Rate 18 18 Blood Pressure [Ri ght Arm] 100/52 L Pulse Oximetry 93 Oxygen Delivery Me thod Room Air Oxygen Flow Rate 0 Documenting provider has reviewed patient's vital signs: yes DS: Data Data Completed and Pending Labs on day of discharge: Labs from last 24 hours 07/09/22 07/09/22 07:06 07:06 WBC 13.83 H RBC 4.02 L Hgb 12.7 L Hct 37.6 MCV 94 MCH 32 MCHC 34 RDW Coeff of Pat 12.3 Plt Count 206 Neut % (Auto) 89.2 H Lymph % (Auto) 5.2 L Hardee % (Auto) 5.4 Eos % (Auto) 0.0 Baso % (Auto) 0.1 Neut # (Auto) 12.30 H Lymph # (Auto) 0.70 L Hardee # (Auto) 0.70 Eos # (Auto) 0.00 Baso # (Auto) 0.00 Abs Immat Gran (auto) 0.02 Sodium 132 L Potassium 3.8 BUN 23 Creatinine 0.9 Estimated Creat Clear 58.48 Estimated GFR 90 Discharge Plan Discharge Disposition: Home, Self-Care Discharging Surgeon: Raimundo Moncada Follow-Up Appointment: 1 week PO with [facility] Prescriptions: New sennosides-docusate sodium [Senna-S] 8.6-50 mg tablet 1 - 4 tab-cap PO BID PRN (Reason: constipation) Qty: 60 0RF Rx Instructions: Hold medication if experiencing loose stools. celecoxib 100 mg capsule 100 mg PO BID Qty: 60 0RF oxycodone 5 mg tablet 2.5 - 5 mg PO Q4-6H MDD 6 PRN (Reason: pain) Qty: 42 0RF Rx Instructions: Take as needed for postop pain: 2.5mg mild pain, 5mg moderate-severe pain; wean as tolerated. aspirin 81 mg tablet,delayed release (DR/EC) 81 mg PO BID Qty: 28 0RF Rx Instructions: Medication to help prevent blood clots postoperatively; take TWICE daily once completed xarelto regimen. rivaroxaban 10 mg tablet 10 mg PO DAILY Qty: 14 0RF Rx Instructions: Medication for deep vein clot prevention post surgery. Complete this medication before starting Aspirin. Continued chlorthalidone 25 mg tablet 25 mg PO DAILY lisinopril 40 mg tablet 40 mg PO DAILY amlodipine 10 mg tablet 10 mg PO DAILY cetirizine 10 mg tablet 10 mg PO DAILY empagliflozin 25 mg tablet 12.5 mg PO QAM multivitamin Tablet 1 tab PO DAILY cholecalciferol (vitamin D3) [Vitamin D3] 25 mcg (1,000 unit) capsule 25 mcg PO BID coenzyme Q10 [Co Q-10] 100 mg capsule 100 mg PO QDAY glucosamine HCl 500 mg tablet 1,000 mg PO BID Rx Instructions: administer with meals latanoprostene bunod 0.024 % drops 1 drp ophthalmic (eye) HS acetaminophen [Tylenol Arthritis Pain] 650 mg tablet extended release 1,300 mg PO Q12H niacin 500 mg tablet 500 mg PO DAILY albuterol sulfate [Ventolin HFA] 90 mcg/actuation HFA aerosol inhaler 2 inh inhalation Q4H PRN brimonidine 0.15 % drops 1 drp ophthalmic (eye) BID dorzolamide-timolol 22.3-6.8 mg/mL drops 1 drp ophthalmic (eye-right) BID Unifiber 80 % powder 2 g PO DAILY Rx Instructions: mix into any appropriate beverage or soft food omega [id number] oil [Fish Oil] 1,000 mg (120 mg-180 mg) capsule 1 cap PO DAILY fluticasone propion-salmeterol [Advair Diskus] 100-50 mcg/dose blister with device 1 inh inhalation BID pravastatin 20 mg tablet 10 mg PO HS Activity Level: Activity as Tolerated, Weight Bearing as Tolerated, Use Cane and Use Walker Patient Instructions: Oxycodone, Rapid Release (By mouth), Celecoxib (By mouth), Senna (By mouth), Surgical Site Infections (DC), Knee Replacement (DC) Additional Instructions: Wound: ?Do not remove original dressing; we will remove this at first postop visit in 1 week. Only remove dressing if integrity is in question. ?No immersing wound in water; showering okay; light scrub with your hand and body soap, rinse, dab dry ?Sutures are under the skin, will dissolve; allow surgical glue to come off naturally; do not scrub the wound or apply ointments/lotions ?Call our office with any redness that streaks, excessive drainage from the wound, or wound gapping. Ice/Elevate: ?Ice as needed for swelling and discomfort (cryocuff or ice pack); elevate frequently above the heart VANESSA socks: ?Wear for 1 month, remove for 1 hour 3 times per day ?These are frustrating to take on/off, but are important for blood clot prevention for 1 month after surgery Blood Clot Prevention (DVT): ?Medication: 81 mg aspirin by mouth twice daily (1 month) Driving: ?Do not drive while taking narcotic pain medication ?Anticipate 4-6 weeks no driving if operative leg is driving leg Dental: ?No elective dental work for 6 months post-op. If there is an urgent/emergent dental need, contact our office for an antibiotic prescription. Smoking/Alcohol: ?Do not smoke; do no drink alcohol especially when taking postoperative oral narcotic medication Seek Care from you Primary Care Provider if you experience the following issues in the postoperative phase and beyond: ?Bacterial infections such as: pneumonia, bacterial skin infection (cellulitis), UTI, high fever, chills unrelated to the operative body part - call your primary care physician urgently for treatment in hopes to protect your health and the metal implant. Referrals: ?PT, OT per patient preference - evaluate treat total knee arthroplasty protocol (gait training, ROM, ADLs) Follow up: ?Ortho surgeon follow-up in 6 weeks; repeat radiographs three views operative knee ?[facility] visit in 1 week *If there are any acute concerns regarding your surgery, please call our orthopedic clinic ([phone]) Forms: Work/Release Restrictions Follow-up: Naresh Henry MD [Primary Care Provider] - Giorgio Jean Baptiste PA-C [Physician Gun Sealing Machine Operator] - 07/18/22 8:30 am Discharge Orders: Discharge Order (Routine); Ordered 07/09/22 Ordered By: Giorgio Jean Baptiste
== END 2022-07-09 11:30 | disposition home or self-care (01) ==
LOC: OR 08:14 → MEDSURG 08:21
PROVIDERS: PCP Family Medicine; Visit Provider Orthopaedic Surgery Sports Medicine
PROC: (CPT 27447; principal; 2022-07-08 10:45)
DX: M17.12 Unilateral primary osteoarthritis, left knee (principal); J45.909 Unspecified asthma, uncomplicated; E11.9 Type 2 diabetes mellitus without complications; I10 Essential (primary) hypertension; I05.9 Rheumatic mitral valve disease, unspecified; K21.9 Gastro-esophageal reflux disease without esophagitis; H40.9 Unspecified glaucoma; E78.5 Hyperlipidemia, unspecified; Z86.718 Personal history of other venous thrombosis and embolism
CPT/HCPCS: 27447; 01402; 36415; 64447; 64454; 73560; 76942; 82565; 82962; 84132; 84295; 84520; 85025; 97110; 97116; 97161; 97165; 97535; 99100; A9270; C1776; J0690; J1100; J1170; J2250; J2405; J2704; J2795; J3010; J7120

== ENCOUNTER 2022-08-19 13:00 | Outpatient (RCR) | payer OTHER, SELFPAY ==
--- NOTE | 2022-07-01 15:06 | PT.OPEX ---
PT [place] Outpatient Eval PT [facility] Outpatient Eval Start: 07/01/22 12:48 Freq: Status: Active Protocol: Document 07/01/22 12:49 FRANTZ (Rec: 07/01/22 13:06 FRANTZ [id number]) E-signed By Reina Fernandez DPT Physical Therapy Outpatient Evaluation Insurance Information Recert Due Date 09/29/22 Insurance Name Other; See Comments Insurance Information/Comments [employer] Medical Diagnosis L knee OA L TKA scheduled for 07/08/22 Treating Diagnosis L knee pain, impaired L knee ROM, impaired L knee/LE mobility/strength, impaired gait, limited tolerance for extended standing/walking Subjective Subjective Patient reports chronic L knee pain leading up to L TKA scheduled for 07/08/22. He reports pain up to 6/10, worsening over time. States kneeling and stairs are more difficult. Patient's spouse is present for PT session today, she will be available to assist patient at home after surgery. Patient has not been using an AD. He is planning to borrow FWW, commode chair, tub/shower chair from the [facility]. Patient/ spouse report they have some adaptive equipment but could not recall which items they have - they will look for them this week. Date of Last Physician Visit 06/04/22 Date of Surgery (If applicable) 07/08/22 Preferred Name Johnny Assessment Assessment/Impression Patient is a 72 year old male with L knee pain, impaired L knee ROM, impaired L knee/LE mobility/strength, impaired gait, limited tolerance for extended standing/walking. Pain rated up to 6/10. Patient reports chronic L knee pain leading up to L TKA surgery scheduled for 07/08/22. Patient seen in PT today for pre-op session to provide education/information on upcoming TKA surgery, safety information/HO, equipment instruction including use of FWW, and instruction in TKA exercises. Handouts issued for exercises, patient to perform them leading up to surgery. Reviewed PT/OT plan during hospital stay and patient is scheduled for OP PT post op. Patient/spouse report having 3 stairs with R railing to enter the home. Once inside, patient can stay on the main level. Spouse is available to assist at home. Patient is planning to borrow a FWW, commode chair for over the toilet, and they have a tub/shower chair as well as some adaptive equipment. Patient to start TKA exercises leading up to his surgery. Patient would benefit from skilled PT for pain/sx management, improved knee ROM, improved knee/LE mobility/ strength, improved gait, balance/proprioception training, and establishment of HEP. Plan of Care Rehabilitation Potential Good Physical Therapy Goals 1. Patient will be educated in TKA pre/post-op safety, mobility, and exercises with HOs provided within one visit with patient returning to PT for post op treatment after L TKA surgery on 07/08/22. PT goals will be updated to TKA rehab goals when patient returns post op. Coordination/Communication With Referral Source Treatment Plan/Direct Interventions Gait Training,Manual Therapy, Therapeutic Exercises Frequency/Duration one pre-op visit then 2x/week post op Patient Will Be Discharged From Therapy Completion of LTG(s),Skills Plateau,Independent w/HEP, Independently Progressing Evaluation Billing Untimed Code Treatment Minutes 34 Complexity Moderate Certification Information Initial Certification Date 07/01/22 Ending Certification Date 09/29/22 Provider Signature Shows Agreement With POC & Medical Necessity Physician Comment/Change Comment or Changes Physician NPI Number #
== END 2022-12-06 11:05 | disposition home or self-care (01) ==
PROVIDERS: PCP Family Medicine; Visit Provider Orthopaedic Surgery Sports Medicine
DX: M25.562 Pain in left knee (principal); Z96.652 Presence of left artificial knee joint; Z51.89 Encounter for other specified aftercare
CPT/HCPCS: 97110; 97162; 97164

== ENCOUNTER 2023-08-05 10:41 | Outpatient (CLI) | payer OTHER, SELFPAY | END 2023-08-05 10:42 | disposition home or self-care (01) | LOC: CT 10:42 | PROVIDERS: PCP Family Medicine; Visit Provider Orthopaedic Surgery Sports Medicine | DX: M75.102 Unspecified rotator cuff tear or rupture of left shoulder, not specified as traumatic (principal); M12.812 Other specific arthropathies, not elsewhere classified, left shoulder; M19.012 Primary osteoarthritis, left shoulder; Z01.818 Encounter for other preprocedural examination | CPT/HCPCS: 73200 ==

== ENCOUNTER 2023-09-09 13:44 | Outpatient (RCR) | payer OTHER, SELFPAY | END 2024-01-07 23:59 | disposition home or self-care (01) | PROVIDERS: PCP Family Medicine; Visit Provider Orthopaedic Surgery Sports Medicine | DX: M75.102 Unspecified rotator cuff tear or rupture of left shoulder, not specified as traumatic (principal); M19.012 Primary osteoarthritis, left shoulder; Z51.89 Encounter for other specified aftercare ==

== ENCOUNTER 2023-09-17 06:02 | Day surgery (SDC) | payer OTHER, SELFPAY ==
--- NOTE | 2023-09-09 14:53 | OT.OPGNE ---
OT Outpatient General/Neuro Eval OT Outpatient General/Neuro Eval Start: 09/09/23 14:43 Freq: Status: Active Protocol: Document 09/09/23 14:44 SMW (Rec: 09/09/23 14:51 SMW Laptop) E-signed By Adri Cardenas OT OT Outpatient Evaluation Details Type Type Eval Complexity Low Insurance Information Insurance Information Insurance Information [employer] Outpatient History/Precautions Medical/Functional History Medical History Reviewed Yes Prior Level of Function/Mobility Independent in ADLs and mobility without an AD Current Condition Treatment Diagnosis M19.012 Social History Type of Dwelling Rambler Home Number of Floors (Floors) 2 Number of Stairs to Enter (Stairs) 3 Lives With: Spouse Physical Barriers in Home Environment Level, No Step Employment Status Retired Oriented Patient Orientation Person,Place,Time,Situation Assessment Assessment Assessment The patient is a 73 year old male referred to outpatient OT for a pre op for a LTSA. Surgery scheduled for 09/17/23. The patient had a TKA ~ 1 year ago and rotator cuff surgery. Patient lives with spouse who will assist as needed. Patient educated on sling wearing, post op exercises, one handed dressing and bathing techniques. Per patient, he plans to discharge to home the same day of surgery. All questions answered satisfactorily. Occupational Therapy Treatment Plan - OP Goals Goals The patient will be educated on post op exercises, sling management and one handed dressing and bathing techniques. goal met. Certification Certification I Certify That: Therapy Services Provided, Therapy Plan Established, Therapy Plan Reviewed
[2023-09-17] VITALS (19 sets, daily range): BP systolic 100–145; BP diastolic 54–89; PULSE 54–79; RESP 12–16; TEMP 36.1–37; O2SAT 91–97; BMI 28.8
[2023-09-17] MEDS: LACTATED RINGERS 1000 ML 1,000 ML 100 ML IV (06:10)
[2023-09-17] MEDS: SODIUM CHLORIDE 0.9 % (FLUSH) 10 ML SYRINGE IVF (06:20)
[2023-09-17] MEDS: OXYCODONE (CR) 10 MG TAB.ER.12H PO (06:45)
[2023-09-17] MEDS: fentaNYL 100 MCG/2 ML inj IVP (07:14)
[2023-09-17] MEDS: MIDAZOLAM HCL 1 MG/ML inj IVP (07:14)
--- NOTE | 2023-09-17 07:15 | SUR.PREOP ---
TIME?OUT:?07 PT/Yoeslin Ashley RN/Dr. Flakito MDA?VERIFICATION?OF?SURGICAL?SITE left shoulder,?PROCEDURE,?AND?CONSENT OBTAINED?PRIOR?TO?INVASIVE?PROCEDURE.
[2023-09-17] MEDS: CEFAZOLIN 2 GM in 0.9 % SODIUM CHLORIDE Mini-bag 100 ML IVPB (07:28)
--- NOTE | 2023-09-17 07:46 | P.NB_ITS ---
Nerve Block Nerve Block Time Seen by Provider: 07:18 Date Seen: 09/17/23 Type of block requested by surgeon for post-operative analgesia: supraclavicular Side: left Time out performed: Yes Verification of patient name: Yes Verification of date of : Yes Site marking: site marked Name of person performing procedure: Flakito Garvin, if any: Carla Continuous monitoring Was continuous monitoring of O2 sat, B/P, alarm security or surveillance monitor, recorded every 15 minutes?: Yes Procedure Checklist: sterile prep, needles and gloves Ultrasound guided. Images saved: Yes Medications given in 5ml increments after negative aspiration: Ropivicaine %: 0.5 mL: 20 Needle gauge: 22 Decadron (mg): 10 Precedex (mcg): 25 Patient tolerated procedure well: Yes Block Charges Block Charge (with Pro Fee): Brachial Plexus Use of Ultrasound Machine for Block: Yes- US Guidance/pain block
--- NOTE | 2023-09-17 07:46 | W.ANESCHARGE ---
Anesthesia Charges Start Date/Time Anesthesia Start Date: 09/17/23 Anesthesia Start Time: 07:28 Stop Date/Time Anesthesia Stop Date: 09/17/23 Anesthesia Stop Time: 09:41 Summary Extremes of Age - Over 70 or under 1: MDA
--- NOTE | 2023-09-17 07:51 | W.PM.H&PU ---
History & Physical Update History & Physical Update H&P Reviewed and patient assessed: No changes noted
--- NOTE | 2023-09-17 09:17 | P.ORPRC_ITS ---
Procedure Note Date of procedure: 09/17/23 Procedure: PREOPERATIVE DIAGNOSIS: 1. Left shoulder irrepairable massive rotator cuff tear with substantial tissue atrophy POSTOPERATIVE DIAGNOSIS: 1. Left shoulder irrepairable massive rotator cuff tear with substantial tissue atrophy 2. Left long head of biceps tendon rupture PROCEDURE: 1. Left reverse shoulder arthroplasty. SURGEON: Raimundo Moncada MD. OCEANOGRAPHY TEACHER: Jose ENGLISHC - Of note, a skilled assistant superintendent for curriculum was critical for this case to aid in patient positioning, tissue retraction, limb manipulation/positioning, retraction for glenoid exposure, which was challenging, awareness and protection of critical structures, and closure. ANESTHESIA: General plus supraclavicular block EBL: 200 ml IMPLANTS: DJ0 surgical Altivate humeral stem size 10 standard shell, short with P2 porous coating vitamin E +4 poly small socket insert RSP glenoid base plate P2 porous coating with 3 perimeter locking screws 32 neutral glenosphere with retaining screw COMPLICATIONS: None evident INDICATIONS: The patient is a pleasant 73-year-old male who has experienced severe left shoulder pain and difficulty with use. Workup included imaging which revealed massive, substantially retracted, significantly atrophy rotator cuff tear involving 3/4 tendons. Physical exam was consistent with associated pain. Given the deformity, the dysfunction, and the pain, and failure of nonoperative management, recommendation was made for surgery. DESCRIPTION OF PROCEDURE: Following a thorough discussion of risks, benefits, and alternatives, consent was obtained and the left shoulder was marked. The patient was brought to the operating room and placed supine on the operating table. Induction of anesthesia was undertaken. 2 g IV Ancef and 1 g tranexamic acid was administered within 1 hr of incision preoperatively. Appropriate time- out was performed identifying proper patient, site, and procedure. The operative extremity was prepped and draped in the appropriate sterile fashion using ChloraPrep after the patient was positioned in the lazy beach chair position with head in neutral alignment and all bony prominences well padded. A longitudinal incision was made for deltopectoral approach. Deltoid was retracted laterally. Cephalic vein was identified and retracted laterally as well. The clavipectoral fascia was identified and divided longitudinally staying lateral to the conjoined tendon / coracoid. The conjoined tendon was protected with a blunt Hohmann. Long of the biceps tendon was identified but found to be dislocated out of the bicipital groove, into to the subscap tear and medial retraction, the biceps was resting on the anterior surface of the subscap/anterior capsular tissue. It had minimal tendon portion extending further distal to the muscle itself. The upper 1/4 of the pectoralis major was also released from its insertion. The rotator cuff was inspected and found to to start have no actual tissue covering the head including the subscapularis, supraspinatus, and infraspinatus. There is a minimal tendon portion of the teres minor in the far posterior aspect of the head. A subscapularis cuff had no specific tissue at the lesser tuberosity and therefore it was primarily anterior capsular/scar tissue. This was released in a subperiosteal-peel sort of concept/fashion. This tissue was tagged for later repair. The 3 sisters were cauterized. The upper capsular tissue was released with a curved Moreno scissors towards the glenoid. The inferior subscapularis/capsular tissue was released on its caudal surface with particular caution for the axillary nerve. Inferior humeral head osteophytes were excised with caution taken throughout the case with regards to the axillary nerve. The humerus was dislocated, and humeral head cut completed. Then a protector plate was applied. We turned our attention to the glenoid. The humerus was retracted posteriorly. The subscap/anterior capsular tissue was protected anteriorly and the labrum/long head biceps origin was excised circumferentially. The capsule was released along the anterior and inferior portions of the glenoid cautiously with a Russell elevator being careful not to penetrate deep. The glenoid had appropriate exposure, and was prepared with the cannulated system with a target of approximately 5-10? of inferior tilt and neutral anteversion (patient had 0 ? of retroversion initially). [Utilizing the match Point 3D printed guide, the guide pin was placed. The 3D printed jig removed and after placing the guide pin, the tap was placed followed by the glenoid reaming. The real base plate was opened, and inserted, and excellent compression/purchase was achieved with the central screw. Peripheral screws were then drilled, measured, and placed. The glenosphere was then placed consistent with the preoperative plan utilizing the above noted glenosphere. After securing the glenosphere with the locking, torque limited screw, attention was turned back to the humerus. A canal finder was placed followed by various reamers by hand. The real humeral stem was then opened and inserted with excellent metaphyseal fit and stability. Trial poly was placed and the shoulder reduced. Excellent reduction and stability achieved with appropriate tension on the conjoined tendon. At this stage, trial implants were removed, and the real implants inserted and the shoulder reduced. A 3 minute Betadine soak was performed followed by a thorough irrigation with normal saline. Subscapularis was repaired with #1 PDS to the cuff of tissue on the lesser tuberosity. Excellent reapproximation of tissue achieved. Hemostasis was found to be appropriate. The deltopectoral interval was reapproximated with 0 Vicryl, subcutaneous and subcuticular closure was then performed with number 2-0 Vicryl and 4-0 Monocryl, respectively. A skilled assistant superintendent for curriculum was critical for this case to aid in patient positioning, tissue retraction, limb manipulation/positioning, retraction for glenoid exposure, which was challenging, awareness and protection of critical structures, and closure. PLAN: 1. Sling at all times for the operative upper extremity. 2. AROM of elbow, forearm, wrist, and digits as tolerated. 3. PT/OT consults for education and assistance. 4. Early ambulation, and SCDs for DVT prophylaxis. 5. Anticipate discharge to home today if he remains medically stable 6. Analgesics p.r.n.
--- NOTE | 2023-09-17 09:45 | W.ANESCHARGE ---
Anesthesia Charges Start Date/Time Anesthesia Start Date: 09/17/23 Anesthesia Start Time: 07:28 Stop Date/Time Anesthesia Stop Date: 09/17/23 Anesthesia Stop Time: 09:41
== END 2023-09-17 14:09 | disposition home or self-care (01) ==
PROVIDERS: PCP Family Medicine; Visit Provider Orthopaedic Surgery Sports Medicine
PROC: 0RRJ0JZ Replacement of Right Shoulder Joint with Synthetic Substitute, Open Approach (ICD-10-PCS; CPT 23472; principal; 2023-09-17 07:30)
DX: M75.122 Complete rotator cuff tear or rupture of left shoulder, not specified as traumatic (principal); M66.822 Spontaneous rupture of other tendons, left upper arm; G89.18 Other acute postprocedural pain; E11.9 Type 2 diabetes mellitus without complications; I10 Essential (primary) hypertension
CPT/HCPCS: 23472; 01638; 64415; 76942; 82962; 97165; 99100; A9270; C1713; C1776; J0330; J0690; J1100; J2250; J2405; J2704; J2795; J3010; J7120